=== PATIENT | male | born 2005 | race Hispanic/Latino ===

== ENCOUNTER 2025-01-15 11:00 | Emergency (ER) | payer SELFPAY ==
[2025-01-15] MEDS ORDERED: Acetaminophen 500 MG TAB ONE (11:15)
== END 2025-01-15 11:29 | disposition home or self-care (01) ==
LOC: NAV ERS 11:00
DX: G44.309 Post-traumatic headache, unspecified, not intractable (principal); T82.118A Breakdown (mechanical) of other cardiac electronic device, initial encounter; F17.290 Nicotine dependence, other tobacco product, uncomplicated; V89.2XXA Person injured in unspecified motor-vehicle accident, traffic, initial encounter
CPT/HCPCS: 93005; 99284